=== PATIENT | female | born 1955 | race Caucasian/White ===

== ENCOUNTER → 2016-10-05 | Outpatient (CLI) | payer OTHER ==
[~2016-10-05] MED LIST: AFRIN15 ML; ALBUTEROL17 GM INH; AZITHROMYCIN250 MG PO; COUGH SYRUP; DELTASONE20 MG PO; GLUCOPHAGE500 M1 PO; HYDROMET SYRUP480 ML PO; IBUPROFEN PO; ILOTYCIN1 GM OS; LISINOPRIL5 MG PO; NASONEX17 GM; NO MEDICATIONS; PREDNISONE PO; REGLAN PO; VISTARIL PO; VITAMIN D50000 UNIT PO
--- NOTE | ~2016-10-05 | EKG ---
PATIENT: REMI SURESH UNIT #: [id number] Ventricular Rate: 84 BPM Atrial Rate: 84 BPM P-R Interval: 142 ms QRS Duration: 88 ms Q-T Interval: 356 ms QTC Calculation(Bezet): 420 ms P [place]: 12 degrees Calculated R [place]: 12 degrees Calculated T [place]: 23 degrees Diagnosis Line: Sinus rhythm with Premature atrial complexes Diagnosis Line: Otherwise normal ECG Diagnosis Line: No previous ECGs available Diagnosis Line: Confirmed by DAVID ANG MD ([id number]) on Diagnosis Line: 10/06/2016 8:37:15 AM INTERPRETING MD: ASHIA QUIROZ
[2016-10-05 10:31] LABS: HEMATOCRIT 41.3 % (35.0-45.0); HEMOGLOBIN 13.9 gm/dL (12.0-16.0); MEAN CELL VOLUME 86.3 FL (83-96); MEAN CORPUSCULAR HGB CONC 33.6 g/dL (30-36); MEAN PLATELET VOLUME 8.1 FL (6.5-11.5); RED BLOOD COUNT 4.78 X10e (3.90-5.30); RED CELL DISTRIBUTION WIDTH 13.9 % (11.0-15.5); WHITE BLOOD COUNT 6.8 X10e3 (4.0-10.5)
[2016-10-05 10:40] LABS: CALCIUM SERUM 9.6 mg/dL (8.4-10.2); CREATININE SERUM 0.8 mg/dL (0.6-1.4); GLOM FILT RATE Estimated 79.6 mL/min (>60); POTASSIUM 4.4 mmol/L (3.5-5.1)
== END | disposition home or self-care (01) ==
LOC: SEKG 10:09
PROVIDERS: Specialist
DX: J34.2 Deviated nasal septum (principal); I49.1 Atrial premature depolarization
CPT/HCPCS: 36415; 80048; 85027; 93005